=== PATIENT | male | born 2000 | race Two or more races ===

== ENCOUNTER 2022-03-23 07:07 | Emergency (ER) | payer OTHER ==
[~2022-03-23 07:07] MED LIST: [UNRECOGNIZED DRUG - CODE]
[2022-03-23] MEDS ORDERED: LACT10SO70 PO (10:53)
[2022-03-23] MEDS ORDERED: HYDR25SU21 PR (12:13)
== END 2022-03-23 07:20 | disposition left against medical advice (07) ==
LOC: ER 07:07
DX: R52 Pain, unspecified (principal); Z53.21 Procedure and treatment not carried out due to patient leaving prior to being seen by health care provider

== ENCOUNTER 2022-03-23 09:16 | Emergency (ER) | payer OTHER ==
[~2022-03-23] VITALS: Ht 177.8 cm; Wt 77.5 kg
[2022-03-23 09:21] VITALS: BP 146/86
[2022-03-23] MEDS ORDERED: LACTULOSE 20Gm/30ML SOLN PO ONE (10:45)
[2022-03-23] MEDS ORDERED: LACT10SO70 PO (10:53)
[2022-03-23] MEDS ORDERED: HYDR25SU21 PR (12:13)
== END 2022-03-23 12:15 | disposition home or self-care (01) ==
LOC: ER 09:16
DX: K59.00 Constipation, unspecified (principal); K64.4 Residual hemorrhoidal skin tags; Z88.1 Allergy status to other antibiotic agents
CPT/HCPCS: 74018